=== PATIENT | female | born 2000 | race Caucasian/White ===

== ENCOUNTER 2018-02-21 10:54 | Emergency (ER) | payer OTHER ==
[2018-02-21 11:00] VITALS: BP 100/66
[2018-02-21] MEDS ORDERED: VALIUM PO ONE (13:18)
--- NOTE | 2018-02-21 13:18 | Emergency Department Report ---
ED Medical Clearance HPI - General Chief complaint: Medical Clearance Stated complaint: DEPRESSED Time Seen by Provider: 02/21/18 12:48 Source: patient Mode of arrival: Ambulatory - History of Present Illness Initial comments: Patient sent to ED by PCP for abnormal behavior she did prior prescription per Concerta but sent to ED for psychiatric now patient recently quit all of her college classes is having anti-motivational symptoms, she is also having frequent bouts of depression with frequent bouts of madie ;PCP is worried that she may be having some type of new onset psychiatric illness, she is not actively homicidal or suicidal she denies any suicidal plan, however she is possibly becoming gravely disabled although at this point time is voluntary, she is here for mood swings and recently quit all of her classes with change in her baseline functioning. She has no fever no headache no chest pain no neck pain or stiffness or other complaints she denies any other medical complaints she is refusing a blood draw here she says the PCP just some took, PCP states those [facility] she does consent to a urine and a Valium awaiting mental health eval -: Gradual, days(s) Traumatic Symptoms: denies traumatic injury Associated Symptoms: denies other symptoms. denies: chest pain, shortness of breath, palpitations, diaphoresis, confusion, cough, fever/chills, headaches, anorexia, malaise, nausea/vomiting, rash, seizure, syncope, weakness Allergies/Adverse reactions: Allergies Allergy/AdvReac Type Severity Reaction Status Date / Time No Known Allergies Allergy Unverified 02/21/18 10:57 ED Review of Systems ROS: Stated complaint: DEPRESSED Other details as noted in HPI Comment: All other systems reviewed and negative Constitutional: denies: diaphoresis, fever, malaise Eyes: denies: eye discharge, vision change ENT: denies: dental pain, hearing loss, epistaxis Respiratory: denies: shortness of breath, SOB with exertion, SOB at rest, stridor Cardiovascular: denies: chest pain, palpitations, dyspnea on exertion, orthopnea , edema, syncope, paroxysmal nocturnal dyspnea Endocrine: no symptoms reported Gastrointestinal: denies: abdominal pain, nausea, vomiting, diarrhea, constipation, hematemesis, melena, hematochezia Genitourinary: denies: frequency, hematuria, discharge, abnormal menses, dyspareunia Skin: denies: rash, lesions, change in color, change in hair/nails, pruritus Neurological: denies: headache, weakness, numbness, paresthesias, confusion, abnormal gait, vertigo Psychiatric: anxiety, depression. denies: auditory hallucinations, visual hallucinations, homicidal thoughts, suicidal thoughts ED Past Medical Hx - Past Medical History Previous Medical History?: No - Surgical History Past Surgical History?: No - Social History Smoking Status: Never Smoker Substance Use Type: None ED Physical Exam - General Limitations: No Limitations General appearance: alert, in no apparent distress - Head Head exam: Present: atraumatic, normocephalic - Eye Eye exam: Present: normal appearance, PERRL, EOMI - ENT ENT exam: Present: normal exam, normal orophraynx - Neck Neck exam: Present: normal inspection. Absent: tenderness, meningismus - Respiratory Respiratory exam: Present: normal lung sounds bilaterally. Absent: respiratory distress, wheezes, rales, rhonchi, stridor, chest wall tenderness, accessory muscle use, decreased breath sounds, prolonged expiratory - Cardiovascular Cardiovascular Exam: Present: regular rate, normal rhythm - GI/Abdominal GI/Abdominal exam: Present: soft. Absent: distended, tenderness, guarding, rebound, rigid, mass, pulsatile mass - Extremities Exam Extremities exam: Present: normal inspection, normal capillary refill. Absent: pedal edema, joint swelling - Back Exam Back exam: Present: normal inspection. Absent: full ROM, tenderness, CVA tenderness (R), CVA tenderness (L), muscle spasm, paraspinal tenderness - Neurological Exam Neurological exam: Present: alert, oriented X3, CN II-XII intact. Absent: motor sensory deficit - Psychiatric Psychiatric exam: Present: depressed, anxious, manic. Absent: homicidal ideation, suicidal ideation - Skin Skin exam: Absent: cyanosis, diaphoretic, erythema, urticaria, vesicles ED Course Vital Signs 02/21/18 10:57 Temperature 98.4 F Pulse Rate 56 L Respiratory 18 Rate Blood Pressure 100/66 O2 Sat by Pulse 99 Oximetry ED Medical Decision Making - Medical Decision Making Case was discussed with the patient's primary doctor we did elect to consult mental health given the nature of his symptoms patient is essentially medically cleared she is not having any gravely disabled syndrome, she does not have evidence of suicidal ideation or homicidal ideation that would warrant a 1013 at this time patient was voluntary, mental health did elect to state that she does not meet inpatient criteria and give her outpatient behavioral centers patient did verbally receive this list and did verbally consent to obtain outpatient mental health, as she noted it was not felt this time the patient was a candidate for a 1013 and was therefore discharged prior to receiving her discharge papers she apparently did elope however the mental health counselor did give her a list of outpatient centers which was felt to be adequate given the fact that they did not feel that she met inpatient criteria patient was informed to return immediately if problems or call 911 did verbalize understanding but did leave prior to receiving her full discharge packet ED Disposition Clinical Impression: Depressed affect, Behavioral problems Disposition: DC- TO HOME OR SELFCARE Is pt being admited?: No Condition: Stable Instructions: Depression (ED) Additional Instructions: Follow-up with the outpatient centers listed as per the mental health counselor or call 911 if having new or alarming symptoms or return immediately if you're having thoughts of hurting herself or someone else or other problems Referrals: PRIMARY CAREMD [Primary Care Provider] - 3-5 Days Time of Disposition: 16:26
[2018-02-21 14:49] LABS: Bacteria,Urine 1+ /HPF (Negative); Bilirubin,Urine NEG (Negative); Blood,Urine NEG (Negative); Color,Urine Yellow (Yellow); Protein,Urine <15 mg/dL mg/dL (Negative); Urobilinogen,Urine < 2.0 mg/dL (<2.0); WBC,Urine < 1.0 /HPF (0.0-6.0)
[2018-02-21 14:51] LABS: HCG Qualitative,Urine Negative (Negative)
== END 2018-02-21 19:05 | disposition home or self-care (01) ==
LOC: ED 10:54
DX: F32.9 Major depressive disorder, single episode, unspecified (principal)
CPT/HCPCS: 81001; 81025; 99283